=== PATIENT | female | born 1970 | race Caucasian/White ===

== ENCOUNTER 2017-11-18 22:28 | Emergency (ER) | payer OTHER ==
--- NOTE | 2017-11-18 22:50 | EDPHY ---
General Time Seen by Provider: 11/18/17 22:45 Narrative: CHIEF COMPLAINT: hand bruising, possible spider bite HISTORY OF PRESENT ILLNESS: Patient presents with complaints of bruising, swelling and pain to the back of the left hand. She states that she may have been bit by a spider there. She was cleaning behind her stove when she thought she felt something on her hand. She moved back quickly and might have injured it on the stove with a wall. She thinks that may have also been a spider but she did not see 1. She has bruising , swelling and pain on the back of the hand. She thinks that she sees an area in the middle of this that is a spider bite. She has some tingling of the left index finger only. No difficulty bending or straightening the fingers. But it is painful to do so. No other associated complaints or modifying factors. DOMINANT EXTREMITY: Right-handed ESTABLISHED ORTHOPEDIST: None REVIEW OF SYSTEMS: Ten systems reviewed and are negative unless otherwise noted in the HPI PAST MEDICAL HISTORY: Hypothyroid, PAST SURGICAL HISTORY: No recent surgeries SOCIAL HISTORY: Nonsmoker. 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 Brisk cap refill in all fingers left hand. Neurological: A&O, sensory of the radial, ulnar and median nerves symmetric in the extremities. Interossei strength symmetric. Diaphragm Builder strength symmetric. No wrist drop. Skin: Warm and dry, no rash. There is ecchymosis of the dorsum of the left hand involving hematoma. I do not appreciate any cyanosis, pallor or necrosis. No cellulitis. Extremities: Tenderness to the dorsum of the left hand in the location of the swelling over the metatarsals. There is no tenderness of the fingers of the wrist. Range of motion is intact and symmetric to the right upper extremity. Psychiatric: Mood and affect normal DIFFERENTIAL DIAGNOSES: Including but not limited to fracture, hematoma, vector bite, expanding hematoma MDM: 11:00 p.m. Bruising, swelling and pain of the dorsum left hand with questionable injury versus vector bite. She may also simply have a hematoma in the area. She is neuro intact distally but complains of paresthesia of with no deficits on exam. She is right-hand dominant. I have ordered x-ray of hand for the possible injury, bruising pain. Tetanus is up-to-date less than 1 year ago. 11:20 p.m. X-ray of the hand, as read by me, reveals soft tissue swelling with no bony abnormalities. 11:30 p.m. Patient re-evaluated. We discussed the negative x-ray. She has had ice on the wound since arrival and there are ready seems to be some decrease in the swelling. She is neuro intact distally. There is no cyanosis, cellulitis or evidence of any infection. There is no necrosis and this does not extend to the wrist or forearm. I do feel the symptomatic care is appropriate and she will continue to ice and elevate as needed. Ibuprofen [id number] as needed. ED precautions for any redness, warmth, difficulty bending or straightening the fingers, fever. She is comfortable this plan and discharged home stable condition. SUPERVISION: This patient was independently evaluated without direct involvement of or examination by the attending physician. ED Precautions: Worsening pain. Erythema, edema, cyanosis, pallor, paresthesia or anesthesia. - History Smoking Status: Never smoked - Objective Vital Signs: Initial Vital Signs Temperature (C) 98.1 F 11/18/17 22:35 Heart Rate 83 11/18/17 22:35 Respiratory Rate 18 11/18/17 22:35 Blood Pressure 132/75 H 11/18/17 22:35 O2 Sat (%) 98 11/18/17 22:35 O2 Delivery Mode Room Air Allergies/Adverse Reactions: No Known Allergies Allergy (Unverified 11/18/17 22:35) Home Medications: Medication Instructions Recorded Levothyroxine 05/18/14 Migraine 05/18/14 Topamax 05/18/14 Departure - Departure Disposition: Home, Routine, Self-Care Clinical Impression: Traumatic hematoma of hand Qualifiers: Encounter type: initial encounter Laterality: left Qualified Code(s): S60.222A - Contusion of left hand, initial encounter Condition: Good Instructions: Hematoma (ED) Additional Instructions: 1. Ice and elevate the extremity often 2. Ibuprofen 600 mg every 6-8 hours as needed for pain 3. Return here for any redness, warmth, difficulty bending or straightening the fingers, fever Referrals: STANLEY BRUCE [Primary Care Provider] - As per Instructions
[2017-11-18] MEDS ORDERED: HALOPERIDOL LACT 5 MG/ML INJ ONE (23:03)
[2017-11-18] MEDS ORDERED: LORazepam 2 MG/ML INJ ONE (23:04)
[2017-11-19 00:03] VITALS: BP 113/60
== END 2017-11-19 00:03 | disposition home or self-care (01) ==
DX: S60.222A Contusion of left hand, initial encounter (principal); X58.XXXA Exposure to other specified factors, initial encounter; Y99.8 Other external cause status; Y93.G1 Activity, food preparation and clean up
CPT/HCPCS: J1630; J2060